=== PATIENT | male | born 1980 | race Native Hawaiian/Other Pacific Islander ===

== ENCOUNTER 2017-08-02 11:03 | Emergency (ER) | payer MEDICARE, OTHER ==
[~2017-08-02] VITALS: Ht 193 cm; Wt 136.4 kg
[~2017-08-02 11:03] MED LIST: IBUP-683 PO
[2017-08-02] MEDS ORDERED: POVIDONE-IODINE 10% 15 ML SOLUTION UD TP ONE (11:45)
[2017-08-02] MEDS ORDERED: BUPIVACAINE HCL/PF 0.25% 10 ML VIAL INJ ONE (11:45)
[2017-08-02 13:49] VITALS: BP 137/89
== END 2017-08-02 13:50 | disposition home or self-care (01) ==
LOC: EMS 11:05
DX: L72.8 Other follicular cysts of the skin and subcutaneous tissue (principal); F17.210 Nicotine dependence, cigarettes, uncomplicated
CPT/HCPCS: 26010; 99283; J3490

== ENCOUNTER 2018-12-05 11:24 | Emergency (ER) | payer MEDICARE, OTHER ==
[~2018-12-05] VITALS: Ht 193 cm; Wt 136.4 kg
[2018-12-05] MEDS ORDERED: [UNRECOGNIZED DRUG - OTHER] PO (11:35)
[2018-12-05] MEDS ORDERED: CYCL10 PO (11:35)
[2018-12-05 11:38] LABS: GLUCOSE,POINT OF CARE 126 MG/DL (70-110)
[2018-12-05 12:46] VITALS: BP 103/73
== END 2018-12-05 12:55 | disposition home or self-care (01) ==
LOC: EMS 11:25
DX: G56.01 Carpal tunnel syndrome, right upper limb (principal); F17.210 Nicotine dependence, cigarettes, uncomplicated; I10 Essential (primary) hypertension

== ENCOUNTER 2020-03-01 15:49 | Emergency (ER) | payer MEDICARE, OTHER ==
[~2020-03-01] VITALS: Ht 193 cm; Wt 134.1 kg
[~2020-03-01 15:49] MED LIST changes: +CYCL10 PO; -IBUP-683 PO; +[UNRECOGNIZED DRUG - OTHER] PO
[2020-03-01] MEDS ORDERED: GABA-1181 PO (15:58)
[2020-03-01] MEDS ORDERED: PERTUSS(ACELL),DIPH,TET VAC/PF 0.5 ML VIAL IM ONE (17:15)
[2020-03-01] MEDS ORDERED: IBUPROFEN 400 MG TABLET PO ONE (17:15)
[2020-03-01 18:33] VITALS: BP 132/77
== END 2020-03-01 18:24 | disposition home or self-care (01) ==
LOC: EMS 15:49
DX: M72.2 Plantar fascial fibromatosis (principal); M79.671 Pain in right foot; F17.210 Nicotine dependence, cigarettes, uncomplicated
CPT/HCPCS: 90471; 90715; 99406

== ENCOUNTER 2021-09-06 08:54 | Emergency (ER) | payer OTHER ==
[~2021-09-06] VITALS: Ht 193 cm; Wt 136.4 kg
[~2021-09-06 08:54] MED LIST changes: -CYCL10 PO; +CYCL10TA17 PO; +GABA-1181 PO; -[UNRECOGNIZED DRUG - OTHER] PO
[2021-09-06 09:05] VITALS: BP 137/93
== END 2021-09-06 14:27 | disposition left against medical advice (07) ==
LOC: EMS 09:04
DX: M79.5 Residual foreign body in soft tissue (principal); F17.210 Nicotine dependence, cigarettes, uncomplicated; Z79.899 Other long term (current) drug therapy
CPT/HCPCS: 99283